=== PATIENT | female | born 1990 | race Caucasian/White ===

== ENCOUNTER 2021-01-03 09:43 | Emergency (ER) | payer BC ==
[2021-01-03 09:51] VITALS: BMI 23.3
[2021-01-03] MEDS ORDERED: LORATADINE 10 MG TABLET PO ONE (10:02)
[2021-01-03] MEDS ORDERED: FAMOTIDINE 20 MG TABLET PO ONE (10:03)
[2021-01-03] MEDS ORDERED: diphenhydrAMINE HCL 25 MG CAPSULE (FP) PO ONE ×2 (10:21→10:32)
[2021-01-03] MEDS ORDERED: FAMOTIDINE 20 MG TABLET ONE (10:23)
[2021-01-03] MEDS ORDERED: LORATADINE 10 MG TABLET ONE (10:23)
[2021-01-03 11:23] VITALS: BP 115/68; PULSE 95; TEMP 98.4
== END 2021-01-03 11:23 | disposition home or self-care (01) ==
LOC: JER 09:43
DX: R21 Rash and other nonspecific skin eruption (principal)
CPT/HCPCS: 99283-25

== ENCOUNTER 2021-06-17 12:41 | Emergency (ER) | payer OTHER, BC ==
[2021-06-17 12:47] VITALS: BP 114/71; PULSE 79; TEMP 97.9; BMI 24.5
[2021-06-17] MEDS ORDERED: DIPHTH,PERTUSS(ACELL),TET 0.5 ML DISP.SYRIN IM ONE ×2 (13:33→13:37)
[2021-06-17 14:14] LABS: BASO % 0.4 % (0-2.0); EOS % 1.3 % (0-4.5); HEMATOCRIT 36.6 % (32.4-45.2); HEMOGLOBIN 12.4 GM/dL (10.7-15.3); LYMPH % 18.5 % (8-40); MCH 29.4 pg (25.7-33.7); MCHC 33.8 g/dl (32.0-36.0); MEAN CELL VOLUME 87.1 fl (80-96); MEAN PLT VOLUME 7.4 fl (7.5-11.1); MONO % 7.1 % (3.8-10.2); NEUT % 72.7 % (42.8-82.8); PLATELET COUNT 274 10^3/uL (134-434); RDW 12.4 % (11.6-15.6); WHITE BLOOD COUNT 9.1 K/mm3 (4.0-10.0)
[2021-06-17 14:46] LABS: CALCIUM 8.9 mg/dL (8.5-10.1)
[2021-06-17 14:47] LABS: CREATININE 0.6 mg/dL (0.55-1.3)
[2021-06-17 14:49] LABS: PHOSPHOROUS 3.8 mg/dL (2.5-4.9)
[2021-06-17 14:51] LABS: BILIRUBIN,TOTAL 0.4 mg/dL (0.2-1)
[2021-06-17 15:38] LABS: HIV INTERPRETATION NEGATIVE (NEGATIVE)
== END 2021-06-17 14:01 | disposition home or self-care (01) ==
LOC: JERFT 12:41
PROC: 3E0234Z Introduction of Serum, Toxoid and Vaccine into Muscle, Percutaneous Approach (ICD-10-PCS; principal; 2021-06-17)
DX: S61.239A Puncture wound without foreign body of unspecified finger without damage to nail, initial encounter (principal); W46.1XXA Contact with contaminated hypodermic needle, initial encounter
CPT/HCPCS: 36415; 80053; 82465; 82977; 83615; 84100; 84478; 84550; 84702; 85025; 86704; 86803; 87340; 87389; 87517; 90715; 99284-25